=== PATIENT | female | born 1945 | race Caucasian/White ===

== ENCOUNTER 2016-04-30 09:41 | Emergency (ER) | payer OTHER ==
[2016-04-30 10:04] VITALS: BP 149/89; PULSE 97; RESP 20; TEMP 99; O2SAT 92
--- NOTE | 2016-04-30 10:28 | UCPHY ---
H & P Time Seen by Provider: 04/30/16 10:04 Patient Type: Established HPI/ROS: This patient presents with a chief complaint of left eye irritation associated with purulent discharge which began yesterday. Initially she had a foreign body sensation but this is resolved and she has also had some blurring which is also resolved. 5 or 6 days ago she developed cold consisting of nasal congestion, sinus pressure, sore throat, ear fullness and cough. She has had some chills but does not think she has had a fever. She admits to some mild shortness of breath but has no chest pain. REVIEW OF SYSTEMS: Constitutional: Fatigue, malaise, chills, no fever Eyes: See above ENT: Sore throat, ear pressure, nasal congestion, sinus pressure Respiratory: Cough, mild shortness of breath Cardiac: No chest pain Gastrointestinal: Not addressed Genitourinary: Not addressed Musculoskeletal: Myalgias Skin: No rash Neurological: Headache Smoking Status: Never smoked Physical Exam: GENERAL: Well-appearing, well-nourished and in no acute distress. The patient is mildly hoarse HEAD: Atraumatic, normocephalic. EYES: Pupils equal round and reactive to light, extraocular movements intact, sclera anicteric, left conjunctiva is injected. Examination with the ophthalmoscope showed no corneal abrasion and no foreign body. ENT: TMs normal, nares congested, oropharynx clear without exudates but with mild injection. Moist mucous membranes. NECK: Normal range of motion, supple without lymphadenopathy or JVD. LUNGS: Breath sounds clear to auscultation bilaterally and equal. No wheezes rales or rhonchi. HEART: Regular rate and rhythm EXTREMITIES: Normal range of motion, no pitting or edema. No clubbing or cyanosis. NEUROLOGICAL: Cranial nerves II through XII grossly intact. Normal speech, normal gait. PSYCH: Normal mood, normal affect. SKIN: Warm, dry, normal turgor, no visible rashes or lesions. Constitutional: Initial Vital Signs Temperature (C) 37.2 C 04/30/16 10:00 Heart Rate 97 04/30/16 10:00 Respiratory Rate 20 04/30/16 10:00 Blood Pressure 149/89 H 04/30/16 10:00 O2 Sat (%) 92 04/30/16 10:00 O2 Delivery Mode Room Air Allergies/Adverse Reactions: simvastatin [From Zocor] Allergy (Unknown, Verified 04/30/16 09:58) MUSCLE PAIN Home Medications: Medication Instructions Recorded Ascorbic Acid [Vitamin C 500 mg 500 mg PO DAILY 07/03/12 (*)] Atorvastatin Calcium [Lipitor 10 10 mg PO HS 07/03/12 mg (*)] Levothyroxine Sodium [Levothroid] 50 mcg PO DAILY 07/03/12 Losartan Potassium [Cozaar 50 mg 50 mg PO DAILY 07/03/12 (*)] Omeprazole [Prilosec 20 mg] 20 mg PO DAILY 07/03/12 Pregabalin [LYRICA] 100 mg PO TID 07/03/12 Acyclovir [Zovirax 400 mg (*)] 800 mg PO BID 08/20/13 Zolpidem Tartrate [Ambien 5MG (*)] 5 mg PO HS PRN 08/27/13 Aspirin [Aspirin 81mg (*)] 81 mg PO BID #28 tab 09/12/13 Ambien 10 mg 11/05/13 Cozaar 11/05/13 Lipitor 10 mg (RX) 11/05/13 Lyrica 11/05/13 Omeprazole 11/05/13 Synthroid 11/05/13 Coq-10 07/08/15 Fish Oil 07/08/15 Multi-Day Vitamins 07/08/15 Vitamin K 07/08/15 Gentamicin 0.3% [Gentak 0.3%] 2 drops LEFTEYE Q4H #1 opht.btl 04/30/16 Medical Decision Making Differential Diagnosis: I believe this patient has a conjunctivitis probably viral in origin. I believe that this diagnosis explains her eye symptoms. Departure - Departure Disposition: Home, Routine, Self-Care Clinical Impression: Conjunctivitis Qualifiers: Conjunctivitis type: acute Acute conjunctivitis type: unspecified Laterality: left Qualifier Code: (H10.32) Unspecified acute conjunctivitis, left eye Upper respiratory infection Qualifiers: URI type: unspecified URI Qualifier Code: (J06.9) Acute upper respiratory infection, unspecified Condition: Good Instructions: Conjunctivitis (ED), Upper Respiratory Infection (ED) Additional Instructions: If your symptoms improved in another 5 or 6 days you should be re-evaluated. Keep your previously scheduled appointment with staff nuclear weapons officer. Referrals: Vickie Burroughs MD [Primary Care Provider] - As per Instructions Prescriptions: Gentamicin 0.3% [Gentak 0.3%] 2 drops LEFTEYE Q4H #1 opht.btl - PQRS PQRS Measurement: Not applicable
== END 2016-04-30 10:33 | disposition home or self-care (01) ==
LOC: CED 09:41
DX: H10.32 Unspecified acute conjunctivitis, left eye (principal); J06.9 Acute upper respiratory infection, unspecified
CPT/HCPCS: 99214-PO; G0463-PO

== ENCOUNTER → 2016-06-21 | Outpatient (CLI) | payer OTHER | LOC: BHFA 14:30 | PROVIDERS: ATTEND Internal Medicine Cardiovascular Disease | DX: I47.1 Supraventricular tachycardia (principal); E78.5 Hyperlipidemia, unspecified; I10 Essential (primary) hypertension ==

== ENCOUNTER → 2016-08-10 | Outpatient (CLI) | payer OTHER | LOC: BMCIMAGING 12:38 | PROVIDERS: ATTEND Internal Medicine | DX: J45.909 Unspecified asthma, uncomplicated (principal) ==

== ENCOUNTER 2016-08-23 06:53 | Observation (INO) | payer OTHER ==
[2016-08-23] MEDS ORDERED: MIDAZOLAM 2 MG/2 ML VIAL IVP ONE (06:59)
[2016-08-23] MEDS ORDERED: NS 1,000 ML IV ONE (06:59)
--- NOTE | 2016-08-23 07:17 | CPEKG ---
Heart Rate: 65 RR Interval: 923 P-R Interval: 144 QRSD Interval: 82 QT Interval: 396 QTC Interval: 412 P [place]: 21 QRS [place]: 23 T Wave [place]: 19 EKG Severity - NORMAL ECG - EKG Impression: SINUS RHYTHM Electronically Signed By: Catherine Hilario 23-Aug-2016 10:01:56
[2016-08-23 07:32] LABS: % IMMATURE GRANULYOCYTES 0.2 % (0.0-1.1); ABSOLUTE IMMATURE GRANULOCYTES 0.01 10^3/uL (0.00-0.10); ADD DIFF? NO; ADD MORPH? NO; ADD SCAN? NO; ATYPICAL LYMPHOCYTE FLAG 10 (0-99); FRAGMENT RBC FLAG 0 (0-99); HEMATOCRIT 35.8 % (38.0-47.0); HEMOGLOBIN 11.7 g/dL (12.6-16.3); LEFT SHIFT FLG 0 (0-99); LIPEMIA HEMOLYSIS FLAG 80 (0-99); MEAN CELL HEMOGLOBIN 34.9 pg (27.9-34.1); MEAN CELL HEMOGLOBIN CONCENTR. 32.7 g/dL (32.4-36.7); MEAN CELL VOLUME 106.9 fL (81.5-99.8); MEAN PLATELET VOLUME 10.2 fL (8.7-11.7); PLATELET CLUMPS FLAG 10 (0-99); PLATELET COUNT 179 10^3/uL (150-400); RED BLOOD CELL COUNT 3.35 10^6/uL (4.18-5.33)
[2016-08-23 07:43] LABS: INR 0.98 (0.83-1.16); PROTIME(PATIENT) 12.9 SEC (12.0-15.0)
[2016-08-23 07:44] LABS: APTT 26.9 SEC (23.0-38.0)
[2016-08-23] MEDS ORDERED: HEPARIN 10,000 UNIT/10 ML MDV ONE (07:45)
[2016-08-23] MEDS ORDERED: ISOPROTERENOL HCL 0.2 MG/ML 5ML AMP ONE (07:45)
[2016-08-23] MEDS ORDERED: BUPIVACAINE 0.5% 30 ML SDV ONE (07:45)
[2016-08-23] MEDS ORDERED: LIDOCAINE 1% 30 ML SDV ONE (07:45)
[2016-08-23 07:55] LABS: ANION GAP 8 mEq/L (8-16); CALCIUM 8.8 mg/dL (8.5-10.4); CARBON DIOXIDE 27 mEq/l (22-31); CHLORIDE 107 mEq/L (97-110); CHOLESTEROL 165 mg/dL (140-220); CHOLESTEROL/HDL RATIO 3.17 RATIO (1.00-4.44); CREATININE 0.9 mg/dL (0.6-1.0); GLOMERULAR FILTRATION RATE > 60; GLUCOSE 88 mg/dL (70-100); HIGH DENSITY LIPOPROTEIN 52 mg/dL (40-85); LDL/HDL RATIO 1.65 RATIO (1.00-3.22); LOW DENSITY LIPOPROTEIN 86 mg/dL (80-100); MAGNESIUM 2.2 mg/dL (1.6-2.3); NON-HIGH DENSITY LIPOPROTEIN 113 mg/dL (90-129); SODIUM 142 mEq/L (134-144); TRIGLYCERIDE 136 mg/dL (35-135); VERY LOW DENSITY LIPOPROTEINS 27 mg/dL (8-25)
[2016-08-23] MEDS ORDERED: PROPOFOL 200 MG/20 ML VIAL ONE (07:57)
[2016-08-23] MEDS ORDERED: ROCURONIUM 50 MG/5 ML VIAL ONE ×2 (07:59→10:11)
[2016-08-23] MEDS ORDERED: DEXAMETHASONE 4 MG/ML VIAL ONE (08:00)
[2016-08-23] MEDS ORDERED: epHEDrine SULFATE 10 MG/ML SYR ONE ×3 (09:27→09:49)
[2016-08-23] MEDS ORDERED: HEPARIN/DEXTROSE 25,000 UNIT/500 ML BAG ONE (09:39)
[2016-08-23] MEDS ORDERED: ONDANSETRON 4 MG/2 ML VIAL ONE ×2 (11:14)
[2016-08-23] MEDS ORDERED: NEOSTIGMINE METHYLSULFATE 5 MG/5 ML SYR ONE (11:17)
[2016-08-23] MEDS ORDERED: GLYCOPYRROLATE 0.2 MG/1 ML VIAL ONE (11:17)
[2016-08-23] MEDS ORDERED: PROTAMINE SULFATE 50 MG/5 ML VIAL IVP ONE (11:32)
--- NOTE | 2016-08-23 12:31 | CPEKG ---
Heart Rate: 71 RR Interval: 845 P-R Interval: 140 QRSD Interval: 82 QT Interval: 400 QTC Interval: 435 P [place]: 39 QRS [place]: 28 T Wave [place]: 19 EKG Severity - NORMAL ECG - EKG Impression: SINUS RHYTHM Electronically Signed By: Catherine Hilario 23-Aug-2016 15:44:21
[2016-08-23 12:39] LABS: ANION GAP 7 mEq/L (8-16); CALCIUM 7.7 mg/dL (8.5-10.4); CARBON DIOXIDE 24 mEq/l (22-31); CHLORIDE 110 mEq/L (97-110); CREATININE 0.8 mg/dL (0.6-1.0); GLOMERULAR FILTRATION RATE > 60; GLUCOSE 143 mg/dL (70-100); POTASSIUM 4.1 mEq/L (3.5-5.2); SODIUM 141 mEq/L (134-144)
[2016-08-23] MEDS ORDERED: ACETAMINOPHEN 325 MG TAB PO PRN (12:49)
[2016-08-23] MEDS ORDERED: ONDANSETRON 4 MG/2 ML VIAL IVP PRN (12:49)
--- NOTE | 2016-08-23 13:06 | EPPROC ---
Electrophysiology Procedure Note: ELECTROPHYSIOLOGIC STUDY AND CATHETER MEDIATED ABLATION OF LEFT POSTEROLATERAL ACCESSORY PATHWAY AND TYPICAL AVNRT Procedures performed: 86476-08 EP evaluation with RA/RV/LA pace/record, with arrhythmia induction 10929-74 EP evaluation with RA/RV pace record, insert/reposition catheter, with arrhythmia induction 39419 Intracardiac catheter ablation, SVT arrhythmogenic focus 43550 3D mapping 2nd arrhythmia Fluoroscopy 35949 Intracardiac echocardiogram 29583-97 Transseptal puncture INDICATION: Supraventricular tachycardia PROCEDURE: Catheters and anesthesia: The patient arrived in the Electrophysiology Laboratory in the fasting state. The right clavicular region, right groin, and left groin area were prepped and draped in the usual sterile manner. Anesthesiologist Dr. Tremayne Caraballo administered general anesthesia. Appropriate non-invasive blood pressure, pulse oximetry and end-tidal CO2 monitoring was established. All catheters were placed percutaneously using the modified Seldinger technique , and advanced into position under fluoroscopic guidance. One #6 [place] hexapolar non-deflectable electrode catheter was inserted into the right atrial appendage via the left femoral vein (2mm spacing; except the proximal ring which was 25cm from the tip used for unipolar recordings). One #7 [place] deflectable octapolar electrode catheter was advanced to the His-bundle position via the left femoral vein (2mm spacing). One #7 [place] deflectable quadrapolar catheter was advanced to the anteroseptal right ventricle via the left femoral vein. One #7 [place] deflectable catheter with 10 pairs of electrodes was placed via the right femoral vein into the coronary sinus. Programmed stimulation of the right atrium, right ventricle and coronary sinus ( left atrium) was performed. Parahisian pacing demonstrated two patterns of retrograde atrial activation during His bundle capture and loss of His bundle capture. This demonstrated the presence of an accessory pathway ( 0500 oclock at the mitral annulus as seen in the [place] view). 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 Ventricular extrastimuli delivered during tachycardia during His bundle refractoriness terminated the tachycardia to be orthodromic AV reentrant tachycardia. 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 Tachycardia started with long AH interval. There was intermittent 2-1 conduction during AVNRT confirming that this was not orthodromic AVRT. In preparation for ablation of the left posterior accessory pathway a transeptal puncture was performed under fluoroscopic and hemodynamic guidance. Intracardiac echocardiography was used during the procedure. Mean left atrial pressure was 18 mm Hg mmHg. A SL1 sheath was inserted into the left atrium. The patient was administered IV heparin bolus and IV heparin continuous infusion prior to the transseptal puncture and the activated clotting time was maintained ~ 300 seconds during the remainder of the procedure. One #7 [place] mapping catheter with a 4 mm tip electrode and a sensor for the [id number] mapping system was inserted into the SL1 sheath and advanced to the left atrium. Mapping was perfomed during ventricular pacing. A sharp retrograde grade accessory pathway potential was recorded at 0500 oclock at the mitral annulus as seen in the [place] view. This preceded the earliest atrial activation by 10 ms. RF#1 was delivered to this site. RF#1 blocked conduction in the accessory pathway after 8 seconds of initiation of ablation. There was change in activation pattern in the coronary sinus and a 2nd RF ablation slightly more anterior to the site of our phone terminated all conduction over the accessory pathway Additional RF 3-5 were delivered slightly anterior and posterior to RF1 site. Following this attention was directed to ablation for AVNRT. Sheath and catheter were withdrawn into the right atrium. Ablation was performed at the upper edge of the coronary sinus and low mid septal tricuspid annulus. Junctional rhythm occurred continuously. There was no slow pathway conduction post ablation. Programmed stimulation from the RA, CS, right ventricle during the baseline state post ablation and during infusion of isoproterenol 2 and 4 mcg/min confirmed that there was no conduction over the left posterior lateral accessory pathway and no orthodromic AVRT or AVNRT could be induced. The catheters were removed. Long sheath was exchanged for short sheath. Protamine was administered. The patient was transferred to the cardiovascular holding area in stable condition. Vascular access sheaths were removed in the holding area. There were no apparent complications. Results: A. Spontaneous Intervals: Pre ablation SCL 12 90 ms AH 65 ms HV 40 ms Post ablation SCL 830 ms AH 55 ms HV 40 ms B. Antegrade AV dara function (decremental pacing) Pre ablation FPERP 390 ms SPERP 380 ms WBB CL 3 70 ms Post ablation FPERP 380 ms WBB CL 370 ms C. Retrograde AV dara function (decremental pacing) Post ablation FPERP 380 ms WBB CL 370 ms D. Accessory pathway function 1. A single AV accessory pathway was identified at the mitral annulus at 0500 oclock as seen in the [place] view. 2. The AV accessory pathway conducted in the antegrade and retrograde directions. During ventricular pacing 1:1 conduction over the accessory pathway was maintained to a cycle length of 330 ms, block over the AP occurred at 320 ms. E. Arrhythmias: 1. Orthodromic AVRT CL 285 ms AH 100 ms HV 40 ms VA 145 ms, shortest VA at posterolateral MA 100 ms 2. Typical AVNRT CL 275 ms AH 230 ms, COLLINS 45 ms VA interval 0 ms CONCLUSIONS: 1. A single left posterolateral accessory pathway, which exhibited conduction in the retrograde direction. 2. 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 3. Successful ablation of the left posterolateral accessory pathway with elimination of AV reentrant tachycardia. 4. Typical AV dara reentry tachycardia. Successful ablation of slow AV dara pathway and elimination of antegrade conduction over slow AV dara pathway and inducibility of AVNRT. 5. No apparent complications. Patient Problems: Problems Problem Status Onset SVT (supraventricular tachycardia) Acute Primary osteoarthritis of left knee Acute
[2016-08-23] MEDS ORDERED: ZOLPIDEM TARTRATE 5 MG TAB PO SCH (21:00)
[2016-08-23] MEDS ORDERED: ASPIRIN 81 MG CHEWABLE TAB PO SCH (21:00)
[2016-08-23] MEDS ORDERED: NON-FORMULARY NEW DRUG (Zolpidem Tartrate [Ambien Cr 12.5 Mg] 12.5 MG) PO SCH (21:00)
[2016-08-23] MEDS: PREGABALIN 50 MG CAP PO SCH (21:01)
[2016-08-24 05:03] LABS: % IMMATURE GRANULYOCYTES 0.3 % (0.0-1.1); ABSOLUTE IMMATURE GRANULOCYTES 0.03 10^3/uL (0.00-0.10); ADD DIFF? NO; ADD MORPH? NO; ADD SCAN? NO; ATYPICAL LYMPHOCYTE FLAG 10 (0-99); FRAGMENT RBC FLAG 0 (0-99); HEMATOCRIT 29.7 % (38.0-47.0); HEMOGLOBIN 9.7 g/dL (12.6-16.3); LEFT SHIFT FLG 0 (0-99); LIPEMIA HEMOLYSIS FLAG 80 (0-99); MEAN CELL HEMOGLOBIN CONCENTR. 32.7 g/dL (32.4-36.7); MEAN CELL VOLUME 107.2 fL (81.5-99.8); MEAN PLATELET VOLUME 10.7 fL (8.7-11.7); PLATELET CLUMPS FLAG 0 (0-99); PLATELET COUNT 160 10^3/uL (150-400); RED BLOOD CELL COUNT 2.77 10^6/uL (4.18-5.33); RED CELL DISTRIBUTION WIDTH 12.6 % (11.5-15.2)
[2016-08-24 05:14] LABS: ANION GAP 6 mEq/L (8-16); CALCIUM 8.2 mg/dL (8.5-10.4); CARBON DIOXIDE 24 mEq/l (22-31); CHLORIDE 109 mEq/L (97-110); CREATININE 0.8 mg/dL (0.6-1.0); GLOMERULAR FILTRATION RATE > 60; GLUCOSE 111 mg/dL (70-100); POTASSIUM 4.8 mEq/L (3.5-5.2); SODIUM 139 mEq/L (134-144)
[2016-08-24 05:22] LABS: TROPONIN I 0.881 ng/mL (0-0.034)
[2016-08-24] MEDS ORDERED: LEVOTHYROXINE 25 MCG TAB PO SCH (06:00)
[2016-08-24 07:32] VITALS: BP 127/72; PULSE 68; RESP 20; TEMP 98; O2SAT 96
[2016-08-24] MEDS: PREGABALIN 50 MG CAP PO SCH (08:06)
--- NOTE | 2016-08-24 08:56 | CPEKG ---
Heart Rate: 79 RR Interval: 759 P-R Interval: 132 QRSD Interval: 86 QT Interval: 376 QTC Interval: 432 P [place]: 4 QRS [place]: 52 T Wave [place]: 26 EKG Severity - NORMAL ECG - EKG Impression: SINUS RHYTHM Electronically Signed By: Catherine Hilario 24-Aug-2016 12:10:49
[2016-08-24] MEDS ORDERED: LOSARTAN POTASSIUM 25 MG TAB PO SCH (09:00)
[2016-08-24] MEDS ORDERED: ACYCLOVIR 400 MG TAB PO SCH (09:00)
[2016-08-24] MEDS ORDERED: PANTOPRAZOLE SODIUM 40 MG TAB PO PRN (09:00)
--- NOTE | 2016-08-24 15:45 | GDS ---
[f rep st] DISCHARGE SUMMARY ADMISSION DIAGNOSES: 1. Supraventricular tachycardia. 2. Hypertension. 3. Hyperlipidemia. 4. Peripheral neuropathy. DISCHARGE DIAGNOSES: 1. Supraventricular tachycardia, status post electrophysiology study and with successful ablation of left posterolateral accessary pathway which eliminated arteriovenous reentry tachycardia. Patient also had a successful ablation of slow arteriovenous dara pathway, eliminating an anterograde conduction over slow arteriovenous dara pathway, inducible of arteriovenous dara reentrant tachycardia. 2. Hypertension. 3. Hyperlipidemia. 4. Peripheral neuropathy. PROCEDURES DONE DURING HOSPITALIZATION: 1. Electrocardiogram. 2. Electrophysiology study. 3. Successful ablation of left posterior accessary pathway, which eliminated arteriovenous reentry tachycardia. 4. Successful ablation of slow arteriovenous dara pathway and elimination of antegrade conduction over slow arteriovenous dara pathway and inducible arteriovenous dara reentrant tachycardia. 5. Echocardiogram. BRIEF HISTORY: Please see H and P. The patient is a 70-year-old female who has had known episodes of SVT since 2003. She had been tried on beta blockers in the past, reporting fatigue symptoms, and discontinued. She had recently had another episode of SVT, lasting for 1-1/2 hours. Paramedics were called, she did have significant shortness of breath and dizziness with them. It was recorded by phd internship service that her heart rate was 185 beats per minute. Adenosine was given. PAST MEDICAL HISTORY: She was evaluated by Dr. Moore, who discussed all options, including medical management versus ablation. Risks and benefits were discussed. Patient decided to undergo ablation. HOSPITAL COURSE: Patient was admitted through CVC, prepped for procedure, and taken to the electrophysiology suite. There, Dr. Moore performed EP procedure, noticing a single left posterior lateral axis pathway which exhibited conduction in retrograde direction, AV reentry tachycardia using left posterior lateral accessary pathway, and typical AV dara reentry tachycardia. At that point, procedure was switched to intervention, in which Dr. Moore was able to successfully ablate the left posterior accessary pathway, which eliminated the AV reentry tachycardia, and successfully ablated the slow AV dara pathway, eliminating the antegrade conduction over slow AV dara pathway and inducible AVNRT. No apparent complications. Patient was taken back to the CVC and ultimately to the PCU overnight.Patient reports, since arrival to the floor, she has had no chest pain or shortness of breath. She has been up and walking in the unit without any difficulties. She denies any palpitations, orthopnea, lightheadedness, near-syncope, or syncopal events. Continuous resident caregiver shows she has been in sinus rhythm with no malignant arrhythmias or pauses. PHYSICAL EXAMINATION: GENERAL APPEARANCE: Today thin, well-groomed, female. She is alert and oriented to person, place, time, and situation. Appears to be under no acute distress. VITAL SIGNS: Current vital signs are blood pressure of 127/72, heart rate 68, respirations 20, saturation 96 in room air, and temperature 36.7 degrees Celsius. HEENT: Head is normocephalic. Lips and tongue are pink and moist with no signs of cyanosis. Conjunctivae pink. NECK : Trachea is midline, +2 carotid pulses bilateral. No auscultated bruits, no jugular vein distention. RESPIRATORY: Lungs clear to auscultation. No rhonchi, rales or wheezes. No accessory muscle use. No intercostal muscle retraction noted. CARDIAC: Regular rate, regular rhythm. S1, S2. No S3, S4, gallops, rubs, or murmur. ABDOMEN: Soft, nontender. Bowel sounds x4 quadrants. No organomegaly. No palpable masses. SKIN: [place], warm, dry. No cyanosis. No clubbing. No peripheral edema. VASCULAR: +2 carotids bilateral, +2 radials bilateral, +2 posterior tibial pulses bilateral. SKIN: [place]. Catheter insertion site, bilateral groin sites, with no redness, swelling, drainage, ecchymosis, or hematoma. No auscultated bruits. LABORATORY STUDIES (Drawn today): WBC of 8.72, hemoglobin 9.7, hematocrit of 29.7, platelet count 160. Sodium 139, potassium 4.8, chloride 109, CO2 24, BUN 14, creatinine 0.8, glucose 111, calcium 8.2. CK 56, CK-MB 2.0, troponin 0.881. Note, expected to have elevated cardiac enzymes status post ablation procedure. STUDIES: Electrophysiology and ablation procedures as mentioned above. Morning electrocardiogram shows sinus rhythm, normal axis; no ST or T-wave abnormalities suggestive of ischemia. Morning echocardiogram showed normal LV systolic, ejection fraction 70% to 75%, with no wall motion abnormalities. Diastolic dysfunction was present. Normal RV size and function. Mild LA dilation with normal RA dimensions. Mild MR, moderate TR. RVSP estimated at 35- 40 mmHg. Borderline dilation of ascending aorta at 3.4 cm. No pericardial effusion. DISCHARGE DISPOSITION: Patient will be discharged home in stable condition. She is under activity restrictions of not lifting more than 10 pounds for the next week and no strenuous activity for the next 2 weeks. DISCHARGE MEDICATIONS: Please see discharge medication reconciliation sheet. DISCHARGE INSTRUCTIONS: Post electrophysiology status post SVT ablation discharge instructions went over with the patient, including monitoring for signs of infection, bleeding precautions, activity restrictions, and DVT precautions. At this time, the patient and friend verbalize understanding of all instructions. No further questions at this time. They have been told that if there any problems or concerns that come up post discharge, they are to notify our office or seek medical attention immediately. TOTAL TIME SPENT ON DISCHARGE: Greater than 30 minutes. /[id number]/MODL and [id number]/MODL MTDD
--- NOTE | 2016-08-24 16:14 | ECHO ---
[id number] + + [address] : : [place] [address] : : [phone] + + Adult Echocardiographic Report + ------+ :Name: LAURO CARTER LStudy Date: 08/24/2016 08:13 AM : : Hospital Ad[id number] 1945 Gender: Female Height: 64 in : :Age: 70 yrs Race: WH Weight: 123 lb : :Reason For Study: F/U post EP study : : BSA: 1.6 meters 2 : + ------+ MMode/2D Measurements \T\ Calculations IVSd: 0.87 cm LVIDd: 4.3 cm FS: 42.1 % Ao root diam: LVPWd: 0.85 cm LVIDs: 2.5 cm EDV(Teich): 3.4 cm 82.3 ml LA dimension: ESV(Teich): 3.1 cm 21.8 ml EF(Teich): 73.5 % LVLd ap4: 6.7 cm SV(MOD-sp4): EDV(MOD-sp4): 34.0 ml 53.0 ml LVLs ap4: 5.2 cm ESV(MOD-sp4): 19.0 ml EF(MOD-sp4): 64.2 % Normal Measurement Values: + + :LVIDd (3.5-5.7cm) IVSd (0.6-1.1cm) LVPWd (0.6-1.1cm) Aortic Root (2.0-3.7cm)Left Atrium (1.5-4.0cm): :LV Vol(d) (76-115ml) LV Vol(s) (29-48ml) Ejec Fraction (50-65%)PV Alfred (0.6- 1.2m/s) TV Alfred (0.4-1.0m/s) : :MV E Alfred (0.8-1.0m/s)MV A Alfred (0.3-1.0m/s)LVOT Alfred (0.7-1.2m/s) Asc Ao Alfred ( 0.9-1.8m/s) : + + Doppler Measurements \T\ Calculations MV E max alfred: 74.5 cm/sec Ao V2 max: 134.2 cm/sec TR max alfred: 281.0 cm/sec MV A max alfred: 103.2 cm/sec Ao max P.2 mmHg TR max P.6 mmHg MV E/A: 0.72 RAP systole: 5.0 mmHg RVSP(TR): 36.6 mmHg Left Ventricle The left ventricle is normal in size. There is normal left ventricular wall thickness. Left ventricular systolic function is normal. Ejection Fraction = 70-75%. The left ventricular ejection fraction is calculated at 73.5 %. There is Doppler evidence for diastolic dysfunction. No regional wall motion abnormalities noted. Right Ventricle The right ventricle is normal in size and function. Atria The left atrium is mildly dilated. Right atrial size is normal. Mitral Valve The mitral valve is normal in structure and function. There is mild mitral regurgitation. Tricuspid Valve Normal tricuspid valve. There is moderate tricuspid regurgitation. Right ventricular systolic pressure is 37-42mmHg. Aortic Valve The aortic valve is trileaflet. The aortic valve opens well. There is no aortic stenosis. There is no aortic insufficiency. Pulmonic Valve The pulmonic valve is not well visualized. Mild pulmonic valvular regurgitation. Great Vessels The aortic root is normal size. Borderline dilated ascending aorta. Pericardium/Pleural There is no pericardial effusion. Conclusion A complete two-dimensional transthoracic echocardiogram was performed (2D, M-mode, Doppler and color flow Doppler). (1) Left ventricular systolic ejection fraction was normal (70-75%) - normal wall motion (2) No left ventricular hypertrophy (3) Diastolic dysfunction was present (4) Normal right ventricular size and function (5) Mild left atrial dilation with normal right atrial dimensions (6) Mild mitral regurgitation (7) Trileaflet aortic valve without sclerosis or insufficiency (8) Moderate tricuspid regurgitation - RVSP was estimated to be 35-40 mm Hg (9) Poor visualization of the pulmonic valve with physiologic insufficiency by doppler (10) Borderline dilation of the ascending aorta (3.4 cm) (11) No comparison echocardiograms Final Reading Physician: Corin Horvath signed on 08/24/2016 04:13 PM Ordering Physician: Miquel Moore Performed By: Lore Westfall, CS
== END 2016-08-24 11:14 | disposition home or self-care (01) ==
LOC: FCATH 06:53 → F2W 12:22
PROVIDERS: ADMIT Internal Medicine Cardiovascular Disease; ATTEND Internal Medicine Cardiovascular Disease
DX: I47.1 Supraventricular tachycardia (principal); I10 Essential (primary) hypertension; E78.5 Hyperlipidemia, unspecified; G62.9 Polyneuropathy, unspecified; E03.9 Hypothyroidism, unspecified; K21.9 Gastro-esophageal reflux disease without esophagitis; Z94.84 Stem cells transplant status; Z85.79 Personal history of other malignant neoplasms of lymphoid, hematopoietic and related tissues
CPT/HCPCS: 93005; 93306; 93621; 93623; 93653; 93655; 93662; C1730; C1731; C1732; C1893; J1100; J1644; J2250; J2405; J2704; J2710; J2720

== ENCOUNTER → 2016-09-11 | Outpatient (CLI) | payer OTHER | LOC: BMCIMAGING 09:50 | PROVIDERS: ATTEND Internal Medicine | DX: Z13.820 Encounter for screening for osteoporosis (principal) ==

== ENCOUNTER → 2016-09-27 | Outpatient (CLI) | payer OTHER | LOC: BHFA 13:30 | PROVIDERS: ATTEND Internal Medicine Cardiovascular Disease | DX: I47.1 Supraventricular tachycardia (principal) ==

== ENCOUNTER → 2016-11-16 | Outpatient (CLI) | payer OTHER | LOC: FIMAGING 11:50 | PROVIDERS: ATTEND Internal Medicine | DX: Z12.31 Encounter for screening mammogram for malignant neoplasm of breast (principal); Z80.3 Family history of malignant neoplasm of breast | CPT/HCPCS: G0202 ==

== ENCOUNTER → 2017-10-02 | Outpatient (CLI) | payer OTHER | LOC: FIMAGING 09:31 | PROVIDERS: ATTEND Physical Medicine & Rehabilitation Neuromuscular Medicine | DX: M41.86 Other forms of scoliosis, lumbar region (principal); S33.130A Subluxation of L3/L4 lumbar vertebra, initial encounter; M51.36 Other intervertebral disc degeneration, lumbar region; M51.26 Other intervertebral disc displacement, lumbar region; M12.88 Other specific arthropathies, not elsewhere classified, other specified site; M48.061 Spinal stenosis, lumbar region without neurogenic claudication; M99.73 Connective tissue and disc stenosis of intervertebral foramina of lumbar region | CPT/HCPCS: 82565-PO ==

== ENCOUNTER → 2018-01-02 | Outpatient (CLI) | payer OTHER | LOC: BHFA 13:00 | PROVIDERS: ATTEND Internal Medicine Cardiovascular Disease | DX: R07.9 Chest pain, unspecified (principal); R94.39 Abnormal result of other cardiovascular function study | CPT/HCPCS: 78452; 93017; A9500 ==

== ENCOUNTER → 2018-01-28 | Outpatient (CLI) | payer OTHER | LOC: FIMAGING 14:42 → EDSTATUS 14:43 | PROVIDERS: ATTEND Nurse Practitioner Adult Health | DX: M54.2 Cervicalgia (principal); Z98.1 Arthrodesis status ==

== ENCOUNTER → 2018-01-31 | Outpatient (CLI) | payer OTHER | LOC: FIMAGING 15:18 | PROVIDERS: ATTEND Internal Medicine | DX: R05 Cough (principal) ==

== ENCOUNTER → 2018-03-22 | Outpatient (CLI) | payer OTHER ==
[~2018-03-22] MED LIST: IOPAMIDOL (ISOVUE-370) 150 ML BTL IV ONE; METOPROLOL TARTRATE 5 MG/5 ML INJ ONE
== END ==
LOC: FIMAGING 13:20
PROVIDERS: ATTEND Internal Medicine Cardiovascular Disease
DX: I25.10 Atherosclerotic heart disease of native coronary artery without angina pectoris (principal); I47.1 Supraventricular tachycardia; I10 Essential (primary) hypertension
CPT/HCPCS: 75574; Q9967; 82565-PO

== ENCOUNTER 2018-06-12 07:30 | Observation (INO) | payer OTHER ==
[2018-06-12] MEDS ORDERED: ASPIRIN EC 325 MG TAB PO ONE ×3 (07:32→10:42)
[2018-06-12] MEDS ORDERED: DIAZEPAM 5 MG TAB PO ONE (07:32)
[2018-06-12] MEDS ORDERED: diphenhydrAMINE 25 MG CAP PO ONE ×2 (07:32→07:51)
[2018-06-12] MEDS ORDERED: FAMOTIDINE 20 MG TAB PO ONE (07:32)
[2018-06-12] MEDS ORDERED: NS 1,000 ML IV ONE (07:32)
[2018-06-12] MEDS ORDERED: FAMOTIDINE 20 MG TAB ONE (07:51)
[2018-06-12] MEDS ORDERED: DIAZEPAM 5 MG TAB ONE (07:52)
--- NOTE | 2018-06-12 08:02 | PDPROPOC ---
Sedation Plan of Care Sedation Plan of Care: vital signs stable, mental status noted, patient educated of risks, benefits, alternatives, patient can tolerate sedation ASA Classification: ASA 2 Planned drugs: fentanyl, midazolam Mallampati Score: Class 2 Mallampati Reference Image: Patient passed 3-3-2 rule?: Yes
--- NOTE | 2018-06-12 08:05 | PDGENHP ---
History & Physical Chief Complaint: chest pain History of Present Illness: Pt is a 72 yo, f with history of HTN and hyperlipidemia who presented with symptoms of chest pain on exertion c/w angina. She had a stress test performed demonstrating an anterior perfusion defect. CT angiogram was notable for an intermediate grade LAD lesion. Pt continues to have angina despite GDMT. Pertinent Past, Social, Family History: No smoking. rare ETOH Relevant Physical Exam: gen - A, A, Ox3. lungs - CTAB. CV - RRR, S1, S3. ext - No edema Cardiorespiratory Assessment: Pt presents with exertional cp c/w angina. She has an abnormal stress test with anterior ischemia. Pt conitnues to have symptoms of medical therapy. Angiogram for risk stratification.
[2018-06-12 08:06] LABS: PLATELET COUNT 227 10^3/uL (150-400)
[2018-06-12 08:16] LABS: PROTIME(PATIENT) 12.8 SEC (12.0-15.0)
[2018-06-12] MEDS ORDERED: fentaNYL 100 MCG/2 ML INJ ONE (08:48)
[2018-06-12] MEDS ORDERED: IOPAMIDOL (ISOVUE-370) 150 ML BTL IV ONE (08:48)
[2018-06-12] MEDS ORDERED: MIDAZOLAM 2 MG/2 ML VIAL ONE (08:48)
[2018-06-12] MEDS ORDERED: LIDOCAINE 1% 300 MG/30 ML SDV ONE (08:48)
[2018-06-12] MEDS ORDERED: BIVALIRUDIN 250 MG/5 ML VIAL IV ONE (09:38)
[2018-06-12] MEDS ORDERED: ADENOSINE 90 MG/30 ML VIAL IV ONE (09:40)
[2018-06-12] MEDS ORDERED: NITROGLYCERIN 1,500 MCG/15 ML VIAL MISC ONE (09:59)
[2018-06-12] MEDS ORDERED: TICAGRELOR 90 MG TAB ONE (10:24)
[2018-06-12] MEDS ORDERED: ATROPINE SULFATE 1 MG/10 ML SYR IVP PRN (10:42)
[2018-06-12] MEDS ORDERED: NITROGLYCERIN 0.4 MG BTL SL PRN (10:42)
[2018-06-12] MEDS ORDERED: HYDROCODONE/APAP 5/325 TAB PO PRN (10:42)
[2018-06-12] MEDS ORDERED: TICAGRELOR 90 MG TAB PO ONE (10:42)
[2018-06-12] MEDS ORDERED: TEMAZEPAM 15 MG CAP PO PRN (10:42)
[2018-06-12] MEDS ORDERED: LORazepam 2 MG/ML INJ IVP PRN (10:42)
[2018-06-12] MEDS ORDERED: ONDANSETRON 4 MG/2 ML VIAL IVP PRN (10:42)
[2018-06-12] MEDS ORDERED: OXYCODONE/APAP 5/325 TAB PO PRN (10:42)
[2018-06-12] MEDS ORDERED: ZOLPIDEM TARTRATE 5 MG TAB PO PRN (10:45)
--- NOTE | 2018-06-12 11:48 | CPIP ---
[f rep st] INVASIVE CARDIAC PROCEDURE DATE OF PROCEDURE: 06/12/2018 PROCEDURES: 1. Coronary angiography. 2. Left ventriculography. 3. FFR of left anterior descending coronary artery. 4. Stenting of left anterior descending coronary artery. INDICATIONS: 1. Angina despite guideline directed medical therapy. 2. Abnormal nuclear stress test with anterior ischemia. ACCESS: Patient was prepped and draped in sterile fashion. 1% lidocaine was used to anesthetize the right inguinal region. A 6-Mosotho introducer sheath was placed selectively in the right common femo ral artery via modified Seldinger technique. CORONARY ANGIOGRAPHY: A 6-Mosotho JL4 was advanced to left main coronary artery and images obtained. The left main coronary artery trifurcated into an LAD, ramus, and circumflex coronary arteries. The left main coronary artery appears normal. The left anterior descending coronary artery had a proxim al lesion that was intermediate in severity approaching 70% to 80%. The ramus coronary artery is a l arge vessel. The ramus coronary artery appeared free of any significant disease. The circumflex cor onary artery is a moderate-sized vessel. The circumflex coronary artery had mild luminal irregularit ies throughout. There was no stenosis greater than 10%. A 6-Mosotho JR4 was advanced to the right co ronary artery and images obtained. The right coronary artery is dominant. The right coronary artery had a proximal 20% stenosis present. LEFT VENTRICULOGRAPHY: A 6-Mosotho pigtail catheter was advanced in the left ventricle and images obt ained. Left ventricle is normal in size and had hyperdynamic systolic function. Estimated ejection fraction was 70%. Left ventricular end-diastolic pressure was 17 mmHg. FFR of the left anterior vincent cending coronary artery: A 6-Mosotho JL4 catheter was advanced to the left main coronary artery and i mages obtained. The FFR wire was advanced into the mid left anterior descending coronary artery and position verified by angiography. FFR was obtained after IV adenosine infusion. FFR was 0.79, indic ating flow limitation. The FFR wire was then withdrawn back to the catheter. There was no evidence of drift. Percutaneous coronary intervention of the left anterior descending coronary artery: A Lug e wire was placed in the distal vessel and position verified by angiography. A 2.5 x 16 Synergy drug -eluting stent was then placed across the lesion and deployed. Followup angiography demonstrated JUAN I-3 flow with incomplete stent expansion. The stent was post dilated with a 2.75 x 12 noncompliant b alloon. Followup angiography demonstrated STACIE-3 flow. No residual stenosis. COMPLICATIONS: None. CONCLUSIONS: 1. Single-vessel coronary artery disease. 2. Normal left ventricular size and systolic function. 3. Flow-limiting disease in the proximal left anterior descending coronary artery by FFR. 4. Status post successful stenting of the left anterior descending coronary artery with Synergy drug -eluting stent. /[id number]/MODL
--- NOTE | 2018-06-12 12:24 | CPEKG ---
Test Reason : OPEN Blood Pressure : / mmHG Vent. Rate : 058 BPM Atrial Rate : 058 BPM P-R Int : 152 ms QRS Dur : 091 ms QT Int : 478 ms P-R-T Axes : 032 032 027 degrees QTc Int : 470 ms Sinus rhythm Confirmed by Josue Coburn ([id number]) on 06/12/2018 12:24:08 PM Referred By: Josue Coburn Confirmed By:Josue Coburn
--- NOTE | 2018-06-12 13:26 | CPEKG ---
Test Reason : OPEN Blood Pressure : / mmHG Vent. Rate : 074 BPM Atrial Rate : 074 BPM P-R Int : 140 ms QRS Dur : 089 ms QT Int : 390 ms P-R-T Axes : 013 002 -01 degrees QTc Int : 433 ms Sinus rhythm Low voltage, precordial leads Confirmed by Josue Coburn ([id number]) on 06/12/2018 1:26:17 PM Referred By: Josue Coburn Confirmed By:Josue Coburn
[2018-06-12] MEDS: TICAGRELOR 90 MG TAB PO SCH (21:42)
[2018-06-12] MEDS: ACYCLOVIR 400 MG TAB PO SCH (21:42)
[2018-06-12] MEDS ORDERED: ATORVASTATIN CALCIUM 20 MG TAB PO SCH (22:00)
[2018-06-12] MEDS ORDERED: PREGABALIN 100 MG CAP PO SCH (22:00)
[2018-06-13 04:29] LABS: PLATELET COUNT 211 10^3/uL (150-400)
[2018-06-13 07:41] VITALS: BP 136/75
[2018-06-13] MEDS: TICAGRELOR 90 MG TAB PO SCH (08:04)
[2018-06-13] MEDS: ACYCLOVIR 400 MG TAB PO SCH (08:04)
[2018-06-13] MEDS ORDERED: MULTIVITAMINS 1 EACH TAB PO SCH (09:00)
[2018-06-13] MEDS ORDERED: ASCORBIC ACID 500 MG TAB PO SCH (09:00)
[2018-06-13] MEDS ORDERED: ASPIRIN EC 81 MG TAB PO SCH (09:00)
[2018-06-13] MEDS ORDERED: LOSARTAN POTASSIUM 25 MG TAB PO SCH (09:00)
--- NOTE | 2018-06-13 10:12 | ASDISCHSUM ---
Discharge Information Plan Status:Home with No Needs Medically Cleared to Leave:06/12/2018 Discharge Date:06/12/2018 CM D/C Disposition:Home, Routine, Self-Care ADT D/C Disposition: Projected Discharge Date:06/12/2018 Transportation at D/C:Family Discharge Delay Reason: Follow-Up Date:06/12/2018 Discharge Slot: Final Diagnosis: Placement Information Patient Contact Information Contact Name:JACQUELINE Relationship:David Address: Work Phone: City: [facility] Phone: State/Zip Code: Email: Financial Information Financial Class:Medicare Primary Plan Desc:MEDICARE OUTPATIENT Primary Plan Number:[id number] Secondary Plan Desc:[employer] Secondary Plan Number:[id number] Assessment Information LACE LACE Length of stay for Answers: Less than 1 day current admission Acuity / Level of Answers: No Care: Did the patient have an inpatient admission? Comorbidities - select Answers: Opioid dependence all that apply / Chronic pain Other Notes: HTN; HLD # of Emergency department Answers: 0 visits in the last 6 months Score: 5 Date Signed: 06/13/2018 10:11 AM Electronically Signed By:Nery Diaz RN Intervention Information
--- NOTE | 2018-06-13 12:42 | GDS ---
[f rep st] DISCHARGE SUMMARY DISCHARGE DIAGNOSES: 1. Coronary artery disease. Patient presented with exertional chest tightness consistent with angin a. She had a stress test performed demonstrating a small area of anterior ischemia. Her Toney treadm ill score placed her at intermediate cardiovascular risk. She was taken to the cardiac catheterizati on laboratory for risk stratification. Coronary angiography was notable for a 70% to 80% stenosis in the proximal left anterior descending coronary artery. FFR was performed demonstrating flow limitat ion. Patient was treated with percutaneous coronary intervention of her left anterior descending cor onary artery using Synergy drug-eluting stent. Patient was unable to tolerate beta-diogenes in the al st, secondary to exercise intolerance. 2. Hypertension. Patient's blood pressures been well controlled while in the hospital on losartan 2 5 mg daily. 3. Hyperlipidemia. Patient has a history of hyperlipidemia. Her LDL was 58 while on atorvastatin 2 0 mg daily. We will plan on continuing current therapy. SUMMARY OF PRESENTATION AND COURSE: Patient is a 72-year-old female with risk factors, including age , hypertension, and hyperlipidemia who presented in the outpatient setting with exertional chest tigh tness. She had a stress test performed demonstrating a small area of anterior ischemia. Her Toney tr eadmill score placed her at intermediate cardiovascular risk. She was taken to the cardiac catheteri zation laboratory for risk stratification. Coronary angiography was notable for an intermediate to h igh-grade lesion involving the proximal left anterior descending coronary artery. This did fit with her stress test, but her stress test indicated a small defect where this should be a large defect. F FR was performed demonstrating flow limitation. Patient was treated with percutaneous coronary inter vention of her left anterior descending coronary artery using Synergy drug-eluting stent. Her postpr ocedural course was uncomplicated, and at the time of discharge, she was ambulating without difficult y. MEDICATIONS: Please see medicine reconciliation form. The patient is not on a beta diogenes, seconda ry to previous intolerance number next. PHYSICAL EXAM: GENERAL: At the time of discharge, patient is resting comfortably in bed. She did n ot appear to be in acute distress. VITAL SIGNS: Temperature is afebrile. Pulse is 78, blood pressu re 107/71, respiratory rate was 15, SaO2 is 98% on room air. LUNGS: Clear to auscultation bilateral ly. CARDIOVASCULAR: Regular rate and rhythm. S1, S2. No murmurs, rubs, or gallops appreciated. E XTREMITIES: No evidence of hematoma. Small ecchymosis. 2+ dorsalis pedis and posterior tibial puls e on the right. NEURO: Patient was awake, alert, and oriented. LABORATORY: Sodium 136, potassium 4.4, chloride 107, CO2 23, BUN 27, creatinine 1.0. White blood ce ll count was 4.94, hemoglobin 11.9, hematocrit 35.8, platelet count was 211. ARRANGEMENTS FOR FOLLOWUP CARE: 1. Patient should participate in cardiac rehab. 2. Patient should follow up with Dr. Coburn of [facility] in approximately 2 weeks period of time for groin check. /[id number]/MODL
--- NOTE | 2018-06-13 16:34 | CPEKG ---
Test Reason : OPEN Blood Pressure : / mmHG Vent. Rate : 065 BPM Atrial Rate : 064 BPM P-R Int : 134 ms QRS Dur : 093 ms QT Int : 393 ms P-R-T Axes : 017 010 023 degrees QTc Int : 409 ms Sinus rhythm Confirmed by Josue Coburn ([id number]) on 06/13/2018 4:34:04 PM Referred By: Josue Coburn Confirmed By:Josue Coburn
== END 2018-06-13 11:59 | disposition home or self-care (01) ==
LOC: FCATH 07:30 → F2W 10:43
PROVIDERS: ADMIT Internal Medicine Cardiovascular Disease; ATTEND Internal Medicine Cardiovascular Disease
DX: I25.119 Atherosclerotic heart disease of native coronary artery with unspecified angina pectoris (principal); I10 Essential (primary) hypertension; E78.5 Hyperlipidemia, unspecified
CPT/HCPCS: 93005; 93458; 93571; C1725; C1760; C1769; C1874; C1887; C9600; G0378; G0379; J0153; J0583; J1644; J2250; J3010; Q9967; 81225-90